=== PATIENT | female | born 1940 ===

== ENCOUNTER 2020-11-04 06:00 | Day surgery (SDC) | payer OTHER ==
[~2020-11-04 06:00] MED LIST: BACLOFEN10 MG PO; CLONAZEPAM0.5 MG PO; ETODOLAC400 M1 PO; HORIZANT600 MG PO; SYNTHROID75 MCG PO
[2020-11-04] MEDS ORDERED: ULTRACET PO (08:34)
[2020-11-04] MEDS ORDERED: RECTICARE30 GM TOP (08:35)
== END 2020-11-04 13:39 | disposition home or self-care (01) ==
LOC: CIR.AMB 06:00
PROVIDERS: ATTEND Surgery
DX: K60.1 Chronic anal fissure (principal); Z20.828 Contact with and (suspected) exposure to other viral communicable diseases